=== PATIENT | male | born 1965 | race Caucasian/White ===

== ENCOUNTER 2021-06-18 07:49 | Inpatient (IN) ==
--- NOTE | 2021-06-16 10:37 | Anesthesiology Consultation ---
Date of Service June 16, 2021 Assessment & Plan (1) Encounter for pre-operative examination: Chart Review Chart Review: Acceptable Risk for Surgery (pending preop Covid testing results and DOS EKG ) and Patient NOT seen in Pre Admission Testing -No preop EKG done- will order for DOS Per nursing assessment 06/16/2021, pt resides in [facility]. Local travel only. Does not usually wear mask in public. No known Covid positive exposures or Covid related symptoms. No known Covid infection in the past 90 days. Pt is NOT vaccinated for Covid. Preop Covid testing scheduled 06/16/21= will await results. Due to not masking and not being vaccinated for Covid- will order Clancy for DOS . Pt will also be inpatient- possible patient cohorting- Clancy ordered for DOS History Surgery Operation Date: 06/18/21 08:15 Proposed Procedures p Robot Assisted Laparoscopic Radical Nephrectomy - Brant Martinez DO s Possible Robotic Hand Assisted Laparoscopic Nephrectomy Right, Possible Open, - Brant Martinez DO Height/Weight Height: 5 ft 6 in Weight: 104.78 kg Allergies Allergy/AdvReac Type Severity Reaction Status Date / Time No Known Allergies Allergy Verified 06/16/21 08:44 Medications Home Medications Medication Instructions Recorded Confirmed Last Taken ibuprofen 200 mg capsule 400 mg PO Q6H PRN 08/05/20 06/16/21 Unknown Lniyta Cancer Drug 1 dose PO BID 06/16/21 06/16/21 Unknown lisinopril 5 mg tablet 5 mg PO QAM 06/16/21 06/16/21 Unknown prednisone 10 mg tablet 5 mg PO QAM 06/16/21 06/16/21 Unknown Past Medical History Medical History Abnormal finding on lung imaging Cancer RIGHT KIDNEY Hypertension Past Family History Family History Father Hypertension Diabetes Past Surgical History Surgical History History of open reduction and internal fixation (ORIF) procedure RIGHT FOOT- Social History Smoking Status: Former smoker Do You Dip or Chew Tobacco: No Smoking End Date: QUIT COUPLE YRS AGO Hx Alcohol Use: Yes Alcohol type: beer alcohol intake frequency: holidays/special occasions only Hx Substance Use: No Testing Laboratory Results 06/11/21= WBC: 7.56 H/H: 14.6/46.0 PLATELETS: 193 SODIUM: 137 POTASSIUM: 4.2 CHLORIDE: 104 CO2: 28.6 BUN: 18.1 CREATININE: 1.26 GLUCOSE: 107 05/26/21= URINE CULTURE: No growth Chest X-Ray Date: 06/11/21 Nodular densities in the right base. These most likely represent normal structures, but given history of malignancy, consider whether further evaluation with CT of chest with contrast prior to surgery may change manager. (Discussed with surgeon's office- surgeon aware and would like to proceed as scheduled without repeat CT scan of chest. Did speak with patient on 06/16/21- scheduled for CT scan of chest next month through pul- had CT scan done 11/2020- discussed with Dr. Shah- pt can proceed as scheduled) Other Testing CT thorax with contrast 12/01/2020 = redemonstration of bilateral pulmonary nodules as well as the distal lymphadenopathy in this patient with known history of right renal mass. Overall size of the lymph nodes and pulmonary nodules are decreased when compared to prior study. Surgical changes of the right upper lobe pulmonary nodule noted with multiple surgical clips. Correlate with patient surgical history. No new airspace disease otherwise identified. Small hiatal hernia.
[~2021-06-18 07:49] MED LIST: LR 15ML/HR IV SCH; ceFAZolin 2000MG 2,000 MG/15 ML SYR IV SCH
[2021-06-18] MEDS ORDERED: MIDAZOLAM HCL 1 MG/ML 2ML VIAL ONE (07:52)
[2021-06-18] MEDS ORDERED: ONDANSETRON INJ 2 MG/ML 2 ML VIAL ONE (07:52)
[2021-06-18] MEDS ORDERED: LIDOCAINE 2% 2 ML VIAL/AMP(20MG/ML) INFIL ONE (07:52)
[2021-06-18] MEDS ORDERED: NEOSTIGMINE METHYLSULFATE 1 MG/ML 10ML VIAL ONE (07:52)
[2021-06-18] MEDS ORDERED: DEXAMETHASONE SOD INJ 4 MG/ML VIAL ONE (07:52)
[2021-06-18] MEDS ORDERED: PROPOFOL IV EMULSION 10 MG/ML 20 ML VIAL IV ONE ×2 (07:52→07:54)
[2021-06-18] MEDS ORDERED: fentaNYL citrate 100 MCG/2 ML VIAL ONE ×2 (07:52→12:14)
[2021-06-18] MEDS ORDERED: GLYCOPYRROLATE 0.2 MG/ML VIAL ONE (07:52)
--- NOTE | 2021-06-18 08:43 | History & Physical Bridge Note ---
Date of Service June 18, 2021 History & Physical Bridge Note I have examined the patient, reviewed the History & Physical and in the interval since the performance of the History & Physical I have noted the following changes of clinical significance: no changes noted
[2021-06-18] MEDS ORDERED: HYDROmorphone INJ 2 MG/ML SYR/VIAL ONE (08:44)
[2021-06-18] MEDS ORDERED: BUPIVACAINE 0.5 % 5 MG/1 ML MPF 30ML VIAL ONE (08:50)
--- NOTE | 2021-06-18 09:31 | Electrocardiogram Report ---
Test Reason : Blood Pressure : / mmHG Vent. Rate : 100 BPM Atrial Rate : 100 BPM P-R Int : 174 ms QRS Dur : 088 ms QT Int : 330 ms P-R-T Axes : 057 004 056 degrees QTc Int : 425 ms Normal sinus rhythm Normal ECG No previous ECGs available Confirmed by Faisal Shaw ([id number]) on 06/18/2021 9:31:23 AM Referred By: Brant Martinez Confirmed By:Faisal Shaw
[2021-06-18] MEDS ORDERED: FLOSEAL HEMOSTATIC MATRIX 10ML TOP ONE (11:22)
[2021-06-18] MEDS ORDERED: TISSEEL FIBRIN SEALANT 10ML TOP ONE (11:22)
[2021-06-18] MEDS ORDERED: SURGICEL ABSORB HEMOSTAT 2IN X 14IN TOP ONE (11:24)
[2021-06-18] MEDS ORDERED: SUGAMMADEX SODIUM 200 MG/2 ML VIAL IV ONE (11:25)
--- NOTE | 2021-06-18 12:06 | Operative Report ---
PG Post Operative Report Pre & Post Diagnosis Operation Date: 06/18/21 09:50 Pre-Op Diagnosis: Malignant Neoplasm of Right Kidney Post-Op Diagnosis: Malignant Neoplasm of Right Kidney I identified the patient and participated in the time-out.: Yes Procedure Operation Date: 06/18/21 09:50 Actual Procedures p Robot Assisted Laparoscopic Right Radical Nephrectomy and extensive lysis of adhesions (Right) - Brant Martinez DO Surgeon Brant Martinez, II, DO Factory Clerk Ruthie Estimated Blood Loss 20 Findings Consistent with Post-Op Diagnosis Metastatic Renal Cell Cancer with very large masses. Adhered to lower portion of liver as well as right adrenal. No significant lymph node enlargement. Numerous adhesions of colon and small bowel in lower pelvis Specimens Right Radical Kidney Drains 18 Fr Villeda Anesthesia Type General Complications none Disposition Disposition: Recovery Room Indications Patient with Metastatic renal cell carcinoma status post target therapy with reduction of mass. Risks and benefits discussed at length. Description of Procedure The patient was brought to the operative suite and placed under general endotracheal intubation anesthesia in the supine position. The patient was transferred to lateral position with the right flank exposed. The patient was placed into a flex'ed position and then placed into mild reverse Trendelenberg. At this point, the patient prepped and draped in the usual sterile fashion and a timeout was completed. Preoperative weight based antibiotics had been given. MARY's and SCD's were placed on the patient's lower extremities. A catheter was placed by nursing using sterile technique. With the time out completed the patient was flexed and the skin was marked. The lateral port site was anesthetized. A small incision was made into the skin and subcutaneous tissues. A Varess needle was selected and placed. The needle was easily moved and it was irrigated and aspirated without any issues or concerns for placement. Insufflation commenced. The 8 mm camera port was placed. The abdominal cavity was further insufflated. The laparoscopic camera was placed and the abdominal cavity inspected. No concerning features were noted. At this point, the skin was marked for port placement and 8mm working ports were placed. The skin was anesthetized down to fascia and an approx 1cm incision was made to place the 2 x 8mm ports. A 16 mm robotic port for the stapling device as well as an additional 8 mm medical assistant per diem ports were also placed in similar fashion under direct visualization. The robot was positioned and docked. The camera was placed and all trocars were positioned under direct visualization. Serena Hendricks was integral in port placement, camera utilization, and docking procedure. She also assisted during the extensive lysis of adhesions. She remained in sterile attire and then proceeded to assist the remainder of the case. The colon was mobilized medially to expose the retroperitoneum and the area assessed. Adhesions were freed to allow mobilization. A small amount of further adhesions were noted from the colon and were freed. These were dissected with blunt technique. Cautery was used to assist dissection and control bleeding. The retroperitoneal fat was assessed. The inferior edge of the liver had multiple thin adhesions to the kidney and retroperitoneum especially around the area of mass effect from the kidney tumor. These were all lysed with blunt and sharp dissection. Cautery was used on the inferior liver to control any minor bleeding. Greater than 20 minutes for lysis of adhesions. Starting distally the retroperitoneum was dissected and care was taken to dissect down near the IVC. The gonadal vein and ureter were identified. This was then followed superiorly. Dissection stayed toward the midline along the IVC and the ureter and gonadal vein were followed up towards the renal hilum. The dissection was followed to the renal pelvis. The Renal Vein was identified and exposed. Dissection was taken further superior. The Renal Artery and Vein were then cleaned and exposed. The kidney was then further mobilized. The Vessels were assessed a final time. A robotic stapling device was placed and two loads of vascular jazmin were used accross the renal vein and artery. Good ligation was noted. They were clamped and engaged and the vein and artery were then incised. No bleeding or other issues. Multiple accessory vessels were noted on the posterior and lateral kidney going to the very large upper pole mass. These were ligated and cut with cautery. The kidney was then mobilized and freed. It was dissected posterior, lateral, and finally superior. Significant thickening of retroperitoneal fat was noted on the superior border. The adrenal gland on the right had significant adherence. This had to be dissected free. A small amount of bleeding was noted from the adhered adrenal gland. This was controlled. Once completely freed, a final vascular load of the stapler was used to cut and ligate the ureter and surround tissue. The kidney was then mobilized to the pelvis. Irrigation was completed multiple times in the resection bed. No masses or other tumors. Multiple small vessels were noted from the side wall. All had been ligated and no bleeding or issues. The adrenal gland did appear to have a small tear. No significant bleeding was noted. No issues with lesions or masses in the remaining tissue or attached to the liver. Surgicel hemostatic agent sheets were placed over the vessel stumps and on the resection bed. Hemostatic agents Tisseel and Floseal were also placed. Hemostatic agent was also placed on the vessel stumps and the adrenal gland. No major bleeding or other issues. The entire dissection space was inspected one final time. No bleeding or injuries or areas of concern were noted. No tumor or other concerning features were noted. At this point, the robot was undocked and moved away from the patient. The port sites were all assessed laparoscopically. No areas of concern or issues. The inferior large robotic port was opened further exposing fascia which was then opened in order to remove the kidney. Additional local had been injected in the skin and fascia. The kidney was removed and sent for analysis. The area was inspected and no issues or concern. A running 1-0 vicryl was then used to close the posterior rectus sheath and peritoneum. A running 1-0 PDS suture was used to close fascia. A running 1-0 vicryl was then used to close the subcutaneous fat tissue. The skin at each site was closed with a stapler. The area was cleaned and bandages placed on each incision. The patient was cleaned and bandaged. The patient was moved back into the supine position The patient was cleaned, aroused from anesthesia, and transferred to the pacu in stable condition having tolerated the procedure well with no complications. I was present and participated in all aspects of the procedure. DEONNA Headley was critical in the portions as mentioned above. Plan to monitor in pacu and monitor in hospital post surgery. Plan followup in approx 7-10 days for staple removal. Pathology phone call in approx 2-3 weeks. I attest to the content of the Intraoperative Record and any orders documented therein. Any exceptions are noted below.
[2021-06-18] MEDS: fentaNYL citrate 100 MCG/2 ML VIAL IV PRN ×2 (12:15→12:20)
[2021-06-18] MEDS ORDERED: HYDROmorphone INJ 2 MG/ML SYR/VIAL IV PRN (12:17)
[2021-06-18] MEDS ORDERED: ONDANSETRON INJ 2 MG/ML 2 ML VIAL IV PRN ×2 (12:17→12:53)
[2021-06-18] MEDS ORDERED: ePHEDrine sulfate 50 MG/ML AMP IV PRN (12:17)
[2021-06-18] MEDS ORDERED: ATROPINE SULFATE 0.1 MG/ML 10ML SYR IV PRN (12:17)
[2021-06-18] MEDS ORDERED: PROMETHAZINE HCL 12.5 MG in SODIUM CHLORIDE 0.9% 50 ML IV PRN (12:17)
[2021-06-18 12:27] LABS: Basophils # (auto) 0.01 K/uL (0-0.2); Basophils % (auto) 0.1 %; Eosinophils # (auto) 0.01 K/uL (0-0.5); Eosinophils % (auto) 0.1 %; Hematocrit (blood only) 42.3 % (42-52); Hemoglobin 13.6 g/dL (14.0-18.0); Immature Granulocytes # (auto) 0.04 K/uL (0.00-0.02); Immature Granulocytes % (auto) 0.4 %; Lymphocytes # (auto) 1.11 K/uL (1.2-3.4); Mean Corpuscular Hemoglobin 30.2 pg (25-34); Mean Corpuscular Volume 93.8 fL (80-100); Mean Platelet Volume 9.4 fL (7.4-10.4); Monocytes # (auto) 0.28 K/uL (0.11-0.59); Monocytes % (auto) 2.8 %; Neutrophils # (auto) 8.68 K/uL (1.4-6.5); Neutrophils % (auto) 85.6 %; Platelet Count 229 K/uL (130-400); RDW Coefficient of Variation 14.6 % (11.5-14.5); RDW Standard Deviation 50.1 fL (36.4-46.3); Red Blood Count 4.51 M/uL (4.7-6.1); White Blood Count 10.13 K/uL (4.8-10.8)
[2021-06-18 12:32] LABS: Mean Corpuscular Hgb Conc 32.2 g/dL (32-36)
--- NOTE | 2021-06-18 12:34 | Anesthesiology Progress Note ---
Date of Service June 18, 2021 Anesthesia Post Procedure Vital Signs Vital Signs: Temp Pulse Pulse Resp BP BP Pulse Ox 06/18/21 12:20 74 16 117/57 L 98 06/18/21 12:10 91 H 16 112/74 94 06/18/21 12:01 36.0 C L 92 H 16 118/71 99 06/18/21 08:22 37.4 C 120 H 20 181/93 H 96 Transfer of Care Handoff Completed per policy Notes Mental Status: alert / awake / arousable and participated in evaluation Patient Amnestic to Procedure: Yes Nausea / Vomiting: adequately controlled Pain: adequately controlled Airway Patency, RR, SpO2: stable & adequate BP & HR: stable & adequate Hydration State: stable & adequate Anesthetic Complications: no major complications apparent
[2021-06-18 12:48] LABS: BUN Creatinine Ratio 10.8 (10-20); Calcium 8.2 mg/dl (8.5-10.1); Creatinine Clr Calc Pharmacy 64.5 ml/min; Est GFR (African American) 60.9 ml/min; Est GFR (Non-African American) 52.5 ml/min; Potassium 3.7 mmol/L (3.5-5.1)
[2021-06-18] MEDS ORDERED: oxyCODONE HCL IR 5 MG TAB (IMMEDIATE RELEASE) PO PRN ×2 (12:53)
[2021-06-18] MEDS ORDERED: MoRPHine SULFATE 4 MG/ML 1 ML CARP\\VIAL IV PRN (12:53)
[2021-06-18] MEDS ORDERED: MoRPHine SULFATE 2 MG/ML CARP IV PRN (12:53)
[2021-06-18] MEDS: LACTATED RINGER'S 1,000 ML IV SCH ×2 (13:54→22:51)
[2021-06-18] MEDS: ACETAMINOPHEN 325 MG TAB PO SCH ×2 (15:06→20:10)
[2021-06-18] MEDS: ceFAZolin 2000MG 2,000 MG/15 ML SYR IV SCH (18:06)
[2021-06-19] MEDS: ACETAMINOPHEN 325 MG TAB PO SCH ×4 (00:50→17:09)
[2021-06-19] MEDS: ceFAZolin 2000MG 2,000 MG/15 ML SYR IV SCH (00:51)
[2021-06-19] MEDS: LANSOPRAZOLE 15 MG SOLTAB PO SCH ×3 (02:29→20:08)
[2021-06-19 06:01] LABS: Hematocrit (blood only) 40.8 % (42-52); Immature Granulocytes # (auto) 0.02 K/uL (0.00-0.02); Immature Granulocytes % (auto) 0.1 %; Lymphocytes % (auto) 10.4 %; Mean Corpuscular Hemoglobin 30.1 pg (25-34); Mean Corpuscular Hgb Conc 31.9 g/dL (32-36); Mean Corpuscular Volume 94.4 fL (80-100); Mean Platelet Volume 9.5 fL (7.4-10.4); Monocytes # (auto) 1.41 K/uL (0.11-0.59); Monocytes % (auto) 10.5 %; Neutrophils # (auto) 10.61 K/uL (1.4-6.5); Platelet Count 226 K/uL (130-400); RDW Coefficient of Variation 14.8 % (11.5-14.5); RDW Standard Deviation 51.7 fL (36.4-46.3); Red Blood Count 4.32 M/uL (4.7-6.1); White Blood Count 13.44 K/uL (4.8-10.8)
[2021-06-19 06:37] LABS: BUN Creatinine Ratio 10.2 (10-20); Calcium 8.7 mg/dl (8.5-10.1); Creatinine Clr Calc Pharmacy 54.2 ml/min; Est GFR (African American) 49.4 ml/min; Est GFR (Non-African American) 42.6 ml/min; Potassium 4.4 mmol/L (3.5-5.1)
[2021-06-19] MEDS: HEPARIN SOD 5,000 UNIT/0.5 ML VIAL SQ SCH ×2 (09:24→20:08)
[2021-06-19] MEDS: lisinopril 5 MG TAB PO SCH (09:24)
[2021-06-19] MEDS: LACTATED RINGER'S 1,000 ML IV SCH ×2 (09:27→20:08)
--- NOTE | 2021-06-19 10:08 | Urology Progress Note ---
Date of Service June 19, 2021 Assessment & Plan (1) Malignant neoplasm of right kidney, except renal pelvis: Plan: - Pt postop day #1 s/p Robot Assisted Laparoscopic Right Radical Nephrectomy and extensive lysis of adhesions with Dr. Martinez. - Doing well, progressing as expected. - Afebrile, hemodynamically stable. - Labs reviewed - Wbc 13.44, Hemoglobin 13.0, Creatinine 1.76 - Minimal pain. - Tolerating clear liquid diet. - Villeda catheter intact, draining clear yellow urine. - Incisions appropriate. Plan- - Remove Villeda catheter this morning and monitor for void. - Encourage OOB and ambulation. - Will advance to full liquid for lunch. - Anticipate home later today if he continues to progress as expected. - Will reassess this afternoon. Admission and Anticipated Discharge Date Admission Date: June 18, 2021 Subjective Pt examined at bedside this AM. Awake, resting in bed on arrival. No acute distress. Pt had an episode of bloody emesis of 15ml overnight. Started on Prevacid twice daily. No further issues with nausea or vomiting. Tolerating clear liquid diet. Minimal pain. No fevers or chills. Incisions appropriate. Villeda catheter intact, draining clear yellow urine. No flatus. Review of Systems Constitutional: as per Subjective / HPI Gastrointestinal: as per Subjective / HPI Genitourinary: + as per Subjective / HPI Physical Exam Constitutional: well developed and well nourished; no acute distress and not ill appearing Respiratory: normal respiratory effort and able to speak in complete sentences; no labored breathing and no audible wheezes Cardiovascular: Extremities: no calf tenderness Gastrointestinal (Abdomen): Inspection/Auscultation: abdomen normal to inspection Percussion/Palpation: + abdomen tender (Mild tenderness with palpation to right abdomen) and abdomen soft; no guarding and abdomen not rigid Incisions appropriate, jazmin/dressings intact. Neurologic: awake Psychiatric: Orientation: alert, oriented x 3 and cooperative Genitourinary: Villeda catheter intact, draining clear yellow urine Results & Data ([facility]) Vital Signs (Past 12 Hours) Vital Signs Temp Pulse Resp BP Pulse Ox 06/19/21 07:44 36.7 C 81 14 124/80 98 06/19/21 03:20 36.7 C 77 18 130/84 98 06/18/21 22:24 36.9 C 77 18 138/70 96 PG Care Time/CCT Total # of Minutes Spent Total Time Spent with Patient: Total time spent is greater than 50% in coordination of care (as documented) at patient's floor/unit and/or counseling patient: Coding Level of Care Code None Diagnoses Malignant neoplasm of right kidney, except renal pelvis C64.1
[2021-06-19] MEDS: DOCUSATE SODIUM 100 MG CAP PO SCH ×2 (11:30→20:08)
[2021-06-20] MEDS: ACETAMINOPHEN 325 MG TAB PO SCH ×3 (02:20→12:13)
[2021-06-20] MEDS: LACTATED RINGER'S 1,000 ML IV SCH ×2 (05:41→11:48)
[2021-06-20 06:07] LABS: Basophils # (auto) 0.02 K/uL (0-0.2); Basophils % (auto) 0.2 %; Eosinophils # (auto) 0.08 K/uL (0-0.5); Eosinophils % (auto) 0.8 %; Hematocrit (blood only) 43.2 % (42-52); Hemoglobin 13.8 g/dL (14.0-18.0); Immature Granulocytes # (auto) 0.03 K/uL (0.00-0.02); Immature Granulocytes % (auto) 0.3 %; Lymphocytes # (auto) 2.05 K/uL (1.2-3.4); Lymphocytes % (auto) 19.3 %; Mean Corpuscular Hemoglobin 30.6 pg (25-34); Mean Corpuscular Hgb Conc 31.9 g/dL (32-36); Mean Corpuscular Volume 95.8 fL (80-100); Mean Platelet Volume 9.5 fL (7.4-10.4); Monocytes # (auto) 1.13 K/uL (0.11-0.59); Monocytes % (auto) 10.6 %; Neutrophils # (auto) 7.32 K/uL (1.4-6.5); Neutrophils % (auto) 68.8 %; Platelet Count 212 K/uL (130-400); RDW Coefficient of Variation 15.1 % (11.5-14.5); RDW Standard Deviation 53.5 fL (36.4-46.3); Red Blood Count 4.51 M/uL (4.7-6.1); White Blood Count 10.63 K/uL (4.8-10.8)
[2021-06-20 06:22] LABS: BUN Creatinine Ratio 9.6 (10-20); Calcium 9.1 mg/dl (8.5-10.1); Creatinine Clr Calc Pharmacy 57.1 ml/min; Est GFR (African American) 52.6 ml/min; Est GFR (Non-African American) 45.4 ml/min; Potassium 4.4 mmol/L (3.5-5.1)
[2021-06-20] MEDS: lisinopril 5 MG TAB PO SCH (08:31)
[2021-06-20] MEDS: LANSOPRAZOLE 15 MG SOLTAB PO SCH (08:31)
[2021-06-20] MEDS: DOCUSATE SODIUM 100 MG CAP PO SCH (08:31)
[2021-06-20] MEDS: HEPARIN SOD 5,000 UNIT/0.5 ML VIAL SQ SCH (08:32)
--- NOTE | 2021-06-20 11:39 | Urology Progress Note ---
Date of Service June 20, 2021 Assessment & Plan (1) Malignant neoplasm of right kidney, except renal pelvis: Plan: POD2 s/p Robot Asst Radical Right nephrectomy Doing well. No Major issues. Good urine output. Tolerating diet. Ambulating. Will have patient home. Recommend followup with oncology in next 1-2 weeks to discuss further management of medications. Admission and Anticipated Discharge Date Admission Date: June 18, 2021 Subjective Postop from urologic surgery. Patient has been tolerating well, but is having some pain and discomfort. Incisions have been mild sore. Having some abdominal distension/gas pains. Had tolerated catheter, removed without issue. Has not had severe pain or uncontrollable pain. Patient has been ambulating. Has not had bowel movement or major change. No new nausea or vomiting. Had tolerated anesthesia without major problems Tolerated liquid diet postoperatively. Did have some minor nausea issues POD0. Improved. Review of Systems Review of Systems: All systems reviewed & are unremarkable except as noted in HPI & below Physical Exam Physical Exam: General: Alert in no acute distress. HEENT: Normocephalic Atraumatic. Inspection normal. Cranial Nerves 2-12 Grossly intact. Normal inspection of face. Normal inspection of neck. Psychologic: Normal affect. Respiratory: Nonlabored. No use of accessory muscles. No tachypnea or dyspnea. Cardiovascular: No tachycardia Skin: [place] and Dry. No rashes or visible lesions. Extremities/Lymphatics: No edema Abdomen: Appropriately tender. Mild distended. No rebound or guarding. Wound: Clean, dry, covered. Results & Data ([facility]) Vital Signs (Past 12 Hours) Vital Signs Temp Pulse Resp BP Pulse Ox 06/20/21 08:48 36.6 C 106 H 14 151/95 H 91 PG Care Time/CCT Total # of Minutes Spent Total Time Spent with Patient: Total time spent is greater than 50% in coordination of care (as documented) at patient's floor/unit and/or counseling patient: Coding Level of Care Code 01017 Subseq Hosp Care Lvl 2 Diagnoses Malignant neoplasm of right kidney, except renal pelvis C64.1
--- NOTE | 2021-06-20 12:26 | Discharge Summary ---
Date of Service June 20, 2021 Admission HPI Per Admitting Provider See H&P Admission Exam Per Admitting Provider See H&P Principal Diagnosis Right Renal Mass. Metastatic Renal Cancer. Discharge Exam General: Alert in no acute distress. HEENT: Normocephalic Atraumatic. Inspection normal. Cranial Nerves 2-12 Grossly intact. Normal inspection of face. Normal inspection of neck. Psychologic: Normal affect. Respiratory: Nonlabored. No use of accessory muscles. No tachypnea or dyspnea. Cardiovascular: No tachycardia Skin: [place] and Dry. No rashes or visible lesions. Extremities/Lymphatics: No edema Abdomen: Appropriately tender. Mild distended. No rebound or guarding. Wound: Clean, dry, covered. Discharge Data Allergies Allergy/AdvReac Type Severity Reaction Status Date / Time No Known Allergies Allergy Verified 06/18/21 08:25 Procedures Performed Operation Date: 06/18/21 09:50 Actual Procedures p Robot Assisted Laparoscopic Right Radical Nephrectomy(Right) - Brant Martinez DO Hospital Course (1) Malignant neoplasm of right kidney, except renal pelvis: POD2 s/p Robot Asst Radical Right nephrectomy Doing well. No Major issues. Good urine output. Tolerating diet. Ambulating. Will have patient home. Recommend followup with oncology in next 1-2 weeks to discuss further management of medications. Total Time Total Time Spent Total Time Spent (In Minutes): 10 minutes Total Time Includes: Examination of the Patient, Discharge Planning, Medication Reconciliation and Communication With Other Providers Discharge Plan Discharge Items Patient Disposition: Home - Self-Care Reason For Visit: Malignant Neoplasm of Right Kidney Discharge Diagnosis: Malignant neoplasm of right kidney Activity: Per Instructions section Lifting: No more than 10 pounds Bathing Comment: Okay to shower after discharge, no tub bath or soaking Sexual Activity: Wait until after follow-up appointment Exercise/Sports: Wait until after follow-up appointment Driving/Machine Use: Do not drive while taking prescription pain medication Non-emergency contact: Surgeon and Urologist Call non-emergency contact if: your pain is not controlled, your pain is worsening, you have a fever, your temperature is above 101, your wound has increased redness, your wound has increased drainage and your wound pain has increased Follow-up/Referrals: Brant Martinez DO [Physician] - 07/03/21 9:00 am (Post op telephone appt. Call will be between 9-2pm. ) PCP,NO [Primary Care Provider] - [facility],Nurse [FAKE FOR SCHEDULES] - 06/26/21 10:20 am (Nursing visit - staple removal) Diet: Regular Addtl Attending Provider Instructions: Please take all medications as prescribed and keep all follow-ups as scheduled. Please call our office at [phone] with any questions, concerns or need to reschedule appointments for any reason. We are happy to assist you. Recovering at home: We recommend having someone with you for the first few days after surgery to help care for you. It is okay to shower tomorrow. Please avoid swimming, bathing or using hot tub until incisions are well healed. Avoid driving until you are not requiring pain medication any further. Walk at least a few times a day. Increase your distance, as you feel able. Stairs in your home are okay. Please avoid strenuous or sexual activity until your follow-up. We recommend using stool softener (i.e. Colace) to prevent constipation and straining, especially the first two weeks post operatively. Call [facility] at [phone] if you experience: Chest pain or trouble breathing (call [phone] or go to the hospital). Fever of 101F or higher Symptoms of infection at incision site, including redness or swelling, warmth, or bad-smelling drainage If you have catheter, and you notice: o Bloody urine or drainage that is dark red or has large clots (Please remember a small amount of blood is normal) o No drainage from the catheter for more than 6 hours o The catheter comes out of your bladder Pain that is not controlled with medicines Pending Studies at Discharge: Yes (pathology) Stand-Alone Forms: My [facility] [place], Smoking Cessation Medications and DC Order Prescriptions: New Colace Clear 50 mg capsule 50 mg PO BID PRN (Reason: constipation) Qty: 30 RF: 2 oxycodone-acetaminophen [Percocet] 7.5-325 mg tablet 1 tab PO Q8H PRN (Reason: pain) Qty: 14 RF: 0 Continued ibuprofen 200 mg capsule 400 mg PO Q6H PRN (Reason: Pain) RF: 0 prednisone 10 mg Tablet 5 mg PO QAM RF: 0 lisinopril 5 mg Tablet 5 mg PO QAM RF: 0 Lniyta Cancer Drug 1 dose PO BID RF: 0 Discharge Orders: Discharge Order (Routine); Ordered 06/20/21 Ordered By: Brant Quiroga/Other Patient Handouts: Laparoscopic Nephroureterectomy Admission Data Admit Date/Time: 06/18/21 11:53 Attending Provider: Brant Martinez Admit Provider: Brant Martinez Primary Care Provider: PCP,NO Other Interventions: Discharge Summary Assessment (RN) Last Done: 06/20/21 11:58 Coding Level of Care Code D/C DAY MANAGEMENT <30 MINS Diagnoses Malignant neoplasm of right kidney, except renal pelvis C64.1
== END 2021-06-20 14:21 | disposition home or self-care (01) | DRG 657 ==
LOC: ASU 07:49 → 3E 11:53
DX: C79.9 Secondary malignant neoplasm of unspecified site; C64.1 Malignant neoplasm of right kidney, except renal pelvis; K66.0 Peritoneal adhesions (postprocedural) (postinfection); R91.8 Other nonspecific abnormal finding of lung field; Z79.899 Other long term (current) drug therapy; Z82.49 Family history of ischemic heart disease and other diseases of the circulatory system; Z87.891 Personal history of nicotine dependence; Z79.52 Long term (current) use of systemic steroids; I10 Essential (primary) hypertension